=== PATIENT | female | born 1940 | race Caucasian/White ===

== ENCOUNTER → 2020-12-26 | Outpatient (CLI) | payer MEDICARE ==
[~2020-12-26] MED LIST: VISIPAQUE 320 MG/ML, 150ML BOTTLE ONE
== END | disposition home or self-care (01) ==
LOC: CVU 09:30
PROVIDERS: ATTEND Internal Medicine Cardiovascular Disease
DX: Z01.810 Encounter for preprocedural cardiovascular examination (principal); I35.0 Nonrheumatic aortic (valve) stenosis; I77.810 Thoracic aortic ectasia; M48.54XA Collapsed vertebra, not elsewhere classified, thoracic region, initial encounter for fracture; M41.85 Other forms of scoliosis, thoracolumbar region; I51.7 Cardiomegaly; K86.89 Other specified diseases of pancreas; N28.89 Other specified disorders of kidney and ureter; K52.9 Noninfective gastroenteritis and colitis, unspecified; K80.20 Calculus of gallbladder without cholecystitis without obstruction; I65.23 Occlusion and stenosis of bilateral carotid arteries
CPT/HCPCS: 71275; 74174; 93880; Q9967